=== PATIENT | female | born 1995 | race Caucasian/White ===

== ENCOUNTER 2017-10-01 23:59 | Emergency (ER) | payer OTHER, SELFPAY ==
[2017-10-02 00:02] VITALS: BP 119/79; PULSE 87; RESP 18; TEMP 36.5; O2SAT 99; BMI 26.9
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
[2017-10-02] MEDS: Clindamycin HCl 150 MG Capsule 300 MG PO (00:47)
[2017-10-02 00:49] VITALS: RESP 18
== END 2017-10-02 00:49 | disposition home or self-care (01) ==
PROVIDERS: Emergency Provider Emergency Medicine; Family Provider Family Medicine; PCP Family Medicine
DX: L73.9 Follicular disorder, unspecified (principal); L03.116 Cellulitis of left lower limb; L03.115 Cellulitis of right lower limb; Z72.0 Tobacco use; Z79.899 Other long term (current) drug therapy
CPT/HCPCS: 99283

== ENCOUNTER 2018-05-06 19:00 | Outpatient (REF) | payer SELFPAY ==
[2018-01-22 15:07] VITALS: BMI 28.8
[2018-05-06 20:21] LABS: Pregnancy, Serum, hCG Quali. NEGATIVE Negative (0-9 Nonpreg)
== END 2018-05-06 23:00 | disposition home or self-care (01) ==
LOC: EDREF 19:00
PROVIDERS: Emergency Medicine
DX: Z04.41 Encounter for examination and observation following alleged adult rape (principal)
CPT/HCPCS: 84703

== ENCOUNTER 2018-12-31 03:00 | Emergency (ER) | payer OTHER, SELFPAY ==
[2018-01-22 15:07] VITALS: BMI 28.8
[2018-12-31 03:01] VITALS: BP 142/86; PULSE 106; RESP 100; TEMP 36.6; O2SAT 100
--- NOTE | 2018-12-31 03:30 | ED.DCSUM_ITS ---
History of Present Illness Chief Complaint: Palpitations Narrative: This patient is a 23-year-old female who presents with chest pain. It began yesterday evening. She describes it as sharp. It is pleuritic. She also complains of feeling short of breath. No history of similar symptoms. No recent illness. No fevers cough rhinorrhea sore throat. She is not a smoker. She is on oral contraceptives. No recent travel or surgery. No history of DVT or pulmonary embolism. She is treated for ADHD and also has a history of ODD. Past Medical History - Allergies and Home Meds Allergies/Adverse Reactions: Allergies Penicillins Allergy (Verified 12/31/18 03:06) Unknown Primary Care Physician: Angel Brewer MD [Primary Care Provider] - Past Medical History: - - ODD, ADHD Smoking Status: Never smoker Review of Systems All systems negative except as indicated General: Denies: Fever Cardiovascular: Reports: Chest pain Respiratory: Reports: Dyspnea. Denies: Cough Physical Exam Vital Signs/Narrative: Vital Signs Temp Pulse Resp BP Pulse Ox 12/31/18 03:01 97.9 F 106 H 100 H 142/86 H 100 Inital Vital Signs reviewed: Yes General: Well nourished Head: Normocephalic Eyes: EOMI ENT: Moist mucous membranes Neck: Supple Cardiovascular: Regular rate, Regular rhythm Respiratory: No distress, CTA bilaterally, Chest tenderness Abdomen: Soft, Nontender Skin: Normal color, No rash Neurological: Alert Psychological: - - Histrionic Diagnostic/Tx/Re-eval Impressions Chest X-Ray 12/31/18 03:30 IMPRESSION: No acute cardiopulmonary disease. No significant interval change. Electronically Signed: Kiarra Houston MD at 4:19 EST , Service support , Chest CTA 12/31/18 04:41 IMPRESSION: No demonstrated pulmonary embolism, aneurysm, leak or arterial dissection. Small left pleural fluid with adjacent parenchymal opacification, possible pleurisy versus mild left lower lobe inflammation. Right axillary lymphadenopathy of unclear etiology. Electronically Signed: Kiarra Houston MD at 5:44 EST , Service support , 12/31/18 03:30 Chest PA and Lateral [RAD] Stat 12/31/18 04:41 CTA Chest W/WO Contrast [CT] Stat Laboratory Results 12/31/18 12/31/18 12/31/18 03:36 03:36 03:36 WBC 7.6 RBC 4.11 L Hgb 11.7 L Hct 36.4 L MCV 88.6 MCH 28.5 MCHC 32.1 RDW Std Deviation 42.2 RDW Coeff of Lorrie 13.0 Plt Count 310 MPV 9.3 Immature Gran % (Auto) 0.400 Neut % (Auto) 45.4 L Lymph % (Auto) 38.4 [place] % (Auto) 8.4 Eos % (Auto) 6.6 H Baso % (Auto) 0.8 Absolute Neuts (auto) 3.5 Absolute Lymphs (auto) 2.92 Nucleated RBC % 0 PT 12.3 INR 0.9 D-Dimer Quant (PE/DVT) 0.89 H* Sodium 142 Potassium 4.3 Chloride 105 Carbon Dioxide 30.0 Anion Gap 7 BUN 16 Creatinine 0.89 Estim Creat Clear Calc 80.63 Est GFR (MDRD) Af Amer 100 Est GFR (MDRD) Non-Af 83 BUN/Creatinine Ratio 18.1 Glucose 98 Calcium 8.7 Troponin I < 0.015 - Medical Decision Making Patient was given IV Toradol and is resting much more comfortably on reevaluation. She underwent the above work-up. EKG shows sinus rhythm at a rate of 91 with no acute ischemic changes. D-dimer returned positive. A CTA of the chest was obtained. This shows a small amount of left pleural fluid as well as parenchymal opacification suggestive of mild inflammatory changes. The etiology of this is unclear. She also has some abnormal right axillary lymphadenopathy. Patient was advised of these findings. For now we will treat with anti-inflammatories for pleurisy. However I did refer the patient to pulmonology for follow-up. She understands to return for new or worsening symptoms and was instructed on specific signs and symptoms to monitor for. ED Disposition - Plan for ED Patient: Disposition: Home or Assisted Living Diagnosis: Chest pain, Pleurisy, Lymphadenopathy Instructions: Pleurisy Prescriptions: Naproxen [Naprosyn] 500 mg PO BID #20 tab Prescription Printed Referrals: Angel Brewer MD [Primary Care Provider] - Alonzo,Nico, MD [STAFF PHYSICIAN] -
--- NOTE | 2018-12-31 03:30 | RAD_ITS ---
STUDY: X-RAY CHEST REASON FOR EXAM: Female, 23 years old. Chest pain and epigastric pain TECHNIQUE: PA and lateral views of the chest. 3 images COMPARISON: 01/04/2015 FINDINGS: The lungs are clear and expanded. There is no demonstrated pleural abnormality. Normal size heart. Normal mediastinum and young. Normal visualized pulmonary arteries. Normal visualized aortic arch and descending thoracic aorta. Normal visualized thoracic spine. Normal visualized ribs, clavicles, and shoulders. There is no demonstrated abnormality of the visualized soft tissue structures of the upper abdomen. RAD/Chest PA and Lateral IMPRESSION: No acute cardiopulmonary disease. No significant interval change. Electronically Signed: Kiarra Houston MD at 4:19 EST , Service support ,
--- NOTE | 2018-12-31 03:30 | EKG12_ITS ---
Test Reason : PALPITATIONS Blood Pressure : / mmHG Vent. Rate : 091 BPM Atrial Rate : 091 BPM P-R Int : 130 ms QRS Dur : 076 ms QT Int : 346 ms P-R-T Axes : 056 060 031 degrees QTc Int : 425 ms Normal sinus rhythm Normal ECG Confirmed by BESSY ISLAS, BAYRON ([id number]), film or videotape editor IMANI ESTRADA ([id number]) on 01/01/2019 11:13:38 AM Referred By: MORGAN Confirmed By:BAYRON DOHERTY MD
[2018-12-31] MEDS: Ketorolac 30 MG/ML Syringe IV (03:44)
[2018-12-31] MEDS: 0.9% Normal Saline 1,000 ML 1000 ML IV (03:44)
[2018-12-31 03:45] VITALS: BP 126/74; PULSE 78; RESP 25; O2SAT 100
[2018-12-31 03:49] LABS: Absolute Lymphocyte Count 2.92 X10^3/uL (0.83-4.51); Absolute Neutrophil Count 3.5 X10^3/uL (2.0-7.7); Basophil# 0.06 X10^3/uL; Basophil% 0.8 % (0-1); Eosinophils% 6.6 % (0-5); Hematocrit 36.4 % (37-47); Hemoglobin 11.7 g/dL (12.0-15.0); Lymphocyte # 2.92 X10^3/ul (4.0); Lymphocyte % 38.4 % (19-41); Mean Corp Hgb Conc 32.1 g/dL (32-36); Mean Corpuscular Hgb 28.5 pg (27.0-32.0); Mean Corpuscular Volume 88.6 fL (81-99); Mean Platelet Vol. 9.3 fl (6.2-12.0); Monocyte# 0.64 X10^3/uL; Monocyte% 8.4 % (0-10); NRBC Flagged by Analyzer 0 % (0-5); Neutrophil # 3.45 X10^3/uL (2.7-7.7); Neutrophil % 45.4 % (47-70); Platelet Count 310 K/mm3 (150-450); RBC Distribution Width SD 42.2 fl (35.1-43.9); Red Blood Count 4.11 M/mm3 (4.2-5.4); White Blood Count 7.6 K/mm3 (4.4-11.0)
[2018-12-31 03:58] LABS: International Normalized Ratio 0.9; Prothrombin Time (Protime)PT. 12.3 SECONDS (11.7-14.9)
[2018-12-31 04:07] LABS: Anion Gap 7 (5-15); BUN 16 mg/dL (7-18); BUN/Creat Ratio 18.1 RATIO (10-20); Calcium,Total 8.7 mg/dL (8.5-10.1); Chloride 105 mmol/L (98-107); Creatinine, Serum 0.89 mg/dL (0.55-1.02); EST Glomerular Filtration Rate 83 mL/min (>60); Est Glom Filt Rate - Afr Amer 100 mL/min (>60); Estimated Creatinine Clearance 80.63 ml/min; Glucose 98 mg/dL (74-106); Potassium 4.3 mmol/L (3.5-5.1); Sodium Level 142 mmol/L (136-145)
[2018-12-31 04:16] LABS: D-Dimer Quantitative (DVT/PE) 0.89 FEU/ug/m (0.27-0.49)
--- NOTE | 2018-12-31 04:16 | ED.RN ---
lab called with critical lab results. d dimer 0.89. Dr. Go made aware no new orders at this time
--- NOTE | 2018-12-31 04:41 | CT_ITS ---
STUDY: CTA CHEST REASON FOR EXAM: Female, 23 years old. XR chest painful palpation up this a.m., shortness of breath, elevated d-dimer RADIATION DOSAGE (If Supplied By Facility): CTDIvol = ( 13.42 ) mGy, DLP = ( 334.05 ) mGycm TECHNIQUE: The examination was performed with the intravenous administration of IV 75mL Isovue-370. Post-processing of the angiographic images was performed, with multiplanar reformation and 3D reconstruction. Individualized dose optimization techniques were used for this CT. COMPARISON: PA and lateral view chest 12/31/2018 FINDINGS: Normal enhancement of the main pulmonary artery and right and left pulmonary arteries. Normal enhancement of the bilateral peripheral pulmonary arteries. There is no demonstrated pulmonary embolism. Normal thoracic aorta and visualized great vessels. There is no demonstrated aortic dissection. Normal heart and pericardium. Normal mediastinum. Normal hilar regions. Normal visualized trachea and bronchi. The lungs are well expanded. Otherwise normal pulmonary parenchyma. Trace left pleural fluid with adjacent hazy parenchymal opacification, indistinct pole contour. There is right axillary bilateral lymphadenopathy with indistinct contour measuring up to 2.1 x 1.7 x 1.9 and 1.8 x 1.4 x 1.5 cm image 172 and 159 series 2, image 100 series 601. Normal left sided axillary lymph nodes. Normal osseous structures. Hemangioma in the T7 vertebral body felt to be an incidental finding. Normal visualized upper abdomen. CT/CTA Chest W/WO Contrast IMPRESSION: No demonstrated pulmonary embolism, aneurysm, leak or arterial dissection. Small left pleural fluid with adjacent parenchymal opacification, possible pleurisy versus mild left lower lobe inflammation. Right axillary lymphadenopathy of unclear etiology. Electronically Signed: Kiarra Houston MD at 5:44 EST , Service support ,
[2018-12-31 05:00] VITALS: BP 125/86; PULSE 86; RESP 14; O2SAT 98
[2018-12-31 06:21] VITALS: BP 117/72; PULSE 80; RESP 20; O2SAT 100
== END 2018-12-31 06:26 | disposition home or self-care (01) ==
PROVIDERS: Emergency Provider Emergency Medicine; Family Provider Family Medicine; PCP Family Medicine
DX: R07.9 Chest pain, unspecified (principal); R09.1 Pleurisy; R59.0 Localized enlarged lymph nodes; R06.02 Shortness of breath; R00.2 Palpitations; F90.9 Attention-deficit hyperactivity disorder, unspecified type; F91.3 Oppositional defiant disorder; Z79.899 Other long term (current) drug therapy; Z88.0 Allergy status to penicillin
CPT/HCPCS: 71046; 71275; 80048; 84484; 85025; 85379; 85610; 93005; 96361; 96374; 99284; Q9967

== ENCOUNTER 2019-02-06 18:01 | Emergency (ER) | payer OTHER, SELFPAY ==
[2019-01-07 09:55] VITALS: BMI 29.4
[2019-02-06 18:03] VITALS: BP 139/99; PULSE 82; RESP 16; TEMP 36.6; O2SAT 98; BMI 29.2
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
[2019-02-06 18:51] LABS: Absolute Lymphocyte Count 1.47 X10^3/uL (0.83-4.51); Absolute Neutrophil Count 4.3 X10^3/uL (2.0-7.7); Basophil# 0.03 X10^3/uL; Basophil% 0.5 % (0-1); Eosinophil# 0.05 X10^3/uL; Eosinophils% 0.8 % (0-5); Hemoglobin 11.6 g/dL (12.0-15.0); Lymphocyte # 1.47 X10^3/ul (4.0); Lymphocyte % 23.7 % (19-41); Mean Corp Hgb Conc 32.2 g/dL (32-36); Mean Corpuscular Hgb 27.8 pg (27.0-32.0); Mean Corpuscular Volume 86.3 fL (81-99); Mean Platelet Vol. 9.7 fl (6.2-12.0); Monocyte# 0.34 X10^3/uL; Monocyte% 5.5 % (0-10); NRBC Flagged by Analyzer 0 % (0-5); Neutrophil % 69.3 % (47-70); Platelet Count 286 K/mm3 (150-450); RBC Distribution Width CV 12.8 % (11.6-14.6); RBC Distribution Width SD 40.4 fl (35.1-43.9); Red Blood Count 4.17 M/mm3 (4.2-5.4); White Blood Count 6.2 K/mm3 (4.4-11.0)
[2019-02-06 19:14] LABS: Amphetamine Urine VISTA NEGATIVE (<1000 ng/mL); Barbiturate Urine VISTA NEGATIVE (< 200 ng/mL); Benzodiazepine Urine VISTA NEGATIVE (< 200 ng/mL); Cocaine Urine VISTA NEGATIVE (< 300 ng/mL); Ecstacy Urine VISTA NEGATIVE (< 500 ng/mL); Methadone Urine VISTA NEGATIVE (< 300 ng/mL); PCP Urine VISTA NEGATIVE (< 25 ng/mL); THC Urine VISTA NEGATIVE (< 50 ng/mL); Vista UDS pH Range 6
[2019-02-06 19:16] LABS: Alcohol, Blood (Medical)-Serum < 3.0 mg/dL; Internal QC Validated? YES +Cl - CLEAR BKGD; Pregnancy, Serum, hCG Quali. NEGATIVE Negative
[2019-02-06 19:17] LABS: Anion Gap 5 (5-15); BUN 5 mg/dL (7-18); BUN/Creat Ratio 6.2 RATIO (10-20); Calcium,Total 8.7 mg/dL (8.5-10.1); Chloride 108 mmol/L (98-107); Creatinine, Serum 0.81 mg/dL (0.55-1.02); EST Glomerular Filtration Rate 92 mL/min (>60); Est Glom Filt Rate - Afr Amer 112 mL/min (>60); Estimated Creatinine Clearance 88.59 ml/min; Glucose 101 mg/dL (74-106); Potassium 3.5 mmol/L (3.5-5.1); Sodium Level 141 mmol/L (136-145)
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
[2019-02-06 21:38] VITALS: BP 121/73; PULSE 77; RESP 15; O2SAT 100
== END 2019-02-06 21:40 | disposition home or self-care (01) ==
PROVIDERS: Emergency Provider Emergency Medicine; Family Provider Family Medicine; PCP Family Medicine
DX: F31.9 Bipolar disorder, unspecified (principal); F17.200 Nicotine dependence, unspecified, uncomplicated; Z91.5 Personal history of self-harm
CPT/HCPCS: 80048; 80307; 80320; 84703; 85025; 99284; G0480

== ENCOUNTER 2019-07-05 17:38 | Emergency (ER) | payer OTHER, MEDICAID, SELFPAY ==
[2019-07-05 17:39] VITALS: BP 112/64; PULSE 98; RESP 16; TEMP 36.2; O2SAT 99; BMI 27.8
--- NOTE | 2019-07-05 17:56 | CT_ITS ---
STUDY: CT BRAIN WITHOUT CONTRAST REASON FOR EXAM: Female, 24 years old. FALL/dizzy/syncope RADIATION DOSAGE (If Supplied By Facility): CTDIvol = ( 44.99 ) mGy, DLP = ( 745.49 ) mGycm TECHNIQUE: Transaxial CT imaging of the brain was performed without administration of intravenous contrast material. Individualized dose optimization techniques were used for this CT. COMPARISON: No relevant priors. FINDINGS: There is scalp injury of the posterior right parietal region. Normal calvarium. Normal size ventricles and extra-axial spaces for the patient''s age. Normal white matter tracts of the cerebral hemispheres. Normal basal ganglia and thalami. Normal brainstem. Normal cerebellum. There is no intracranial hemorrhage. There are no findings of an acute ischemic infarction. There is mucosal thickening of the left maxillary sinus. CT/Brain/Head without Contrast IMPRESSION: There is no evidence of intracranial hemorrhage or calvarial fracture. There is scalp injury of the posterior right parietal region. There is mucosal thickening of the left maxillary sinus which may represent mild chronic sinusitis. Electronically Signed: Ronaldo Enciso MD at 18:40 EDT , Service support ,
[2019-07-05] MEDS: Diphth,Pertuss(Acell),Tet Vac 0.5 ML Vial IM (18:07)
--- NOTE | 2019-07-05 18:40 | ED.DCSUM_ITS ---
- ER Visit Summary Date of Service: 07/05/19 Chief Complaint: Laceration History of Present Illness: The patient is a 24 F who fell prior to arrival. She stood up too fast and got dizzy. She did not lose consciousness, but she lost her balance and hit her head. She complains of a laceration to her occipu t. No blood thinners. No other associated symptoms or complaints. No other trauma. Physical Examination: Afebrile and vital signs unremarkable. She has a 3 cm linear full-thickness laceration to her right occiput. Otherwise exam is unremarkable. Good strength and sensation. Normal gait. Test Results: CT brain unremarkable. Emergency Department Course and Treatment: Tetanus was updated. Wound was cleaned and explored. Closed with 3 adiel. Wound care instructions given. Patient likely had a concussion. Concussion precautions were given. It sounds like the patient got dizzy because she stood up too fast. There is nothing to suggest autonomic dysfunction or orthostatic hypotension. Patient h ad no concerns of any medical issues. She is not having any other symptoms or concerning historical features. She did not want any further evaluation. I believe this is appropriate. Risks were discussed. Patient will be discharged to follow-up as an outpatient for wound care. Return right away for any new or worsening issues. Treatment Plan: As above Disposition: Discharge Impression: Scalp laceration 3 cm, concussion This note was generated with [employer] dictation software. It may contain incorrect words, spelling, and punctuation that were not noted in review of the chart prior to signing ED Disposition - Plan for ED Patient: Instructions: ED Laceration Scalp Sutures or [place] Referrals: Angel Brewer MD [Primary Care Provider] - 10 Day for suture removal
--- NOTE | 2019-07-05 18:43 | ED.DEP ---
ED Disposition - Plan for ED Patient: Instructions: ED Laceration Scalp Sutures or [place] Referrals: Angel Brewer MD [Primary Care Provider] - 10 Day for suture removal
[2019-07-05 18:50] VITALS: BP 130/80; PULSE 87; RESP 15
== END 2019-07-05 18:55 | disposition home or self-care (01) ==
LOC: ED 18:34
PROVIDERS: Emergency Provider Emergency Medicine; PCP Family Medicine
DX: S06.0X0A Concussion without loss of consciousness, initial encounter (principal); S01.01XA Laceration without foreign body of scalp, initial encounter; W19.XXXA Unspecified fall, initial encounter; Y93.89 Activity, other specified; Y92.9 Unspecified place or not applicable; F31.9 Bipolar disorder, unspecified; Z72.0 Tobacco use
CPT/HCPCS: 12002; 70450; 90471; 90715; 99282

== ENCOUNTER 2021-05-27 18:03 | Emergency (ER) | payer MEDICAID, SELFPAY ==
[2021-05-27 18:04] VITALS: BP 117/80; PULSE 78; RESP 16; TEMP 36.7; O2SAT 100; BMI 24.3
[2021-05-27 18:29] VITALS: BP 117/80; PULSE 78; RESP 16; TEMP 36.7; O2SAT 100
--- NOTE | 2021-05-27 19:24 | ED.VIS.DENTA ---
HPI History of Present Illness Chief Complaint: Dental Narrative Narrative: Patient denies significant past medical history presents with pain in her right lower jaw and in her second molar that she has had for the last few days to week. She states she broke her tooth weeks ago, but started having more pain yesterday. She denies any fevers or chills. No difficulty swallowing. No swelling of her jaw. She is a non-smoker. She has not seen her dentist since last year. [facility] Medical History Fatigue neck and back pain Severe headache Shortness of breath Home Medications lamotrigine 25 mg tablet 150 mg PO DAILY 01/22/18 [History Last Taken Unknown] norgestimate 0.25 mg-ethinyl estradiol 35 mcg tablet 1 tab PO DAILY 01/22/18 [History Last Taken Unknown] albuterol sulfate 90 mcg/actuation breath activated powder inhaler 2 inh INHALATION Q6H PRN #1 ea 01/07/19 [Rx Last Taken Unknown] citalopram 40 mg PO DAILY 07/05/19 [History Last Taken Unknown] clindamycin HCl [Cleocin HCl] 300 mg PO Q6H #40 cap 05/27/21 [Rx Last Taken Unknown] ibuprofen 600 mg PO Q6H PRN PRN #20 tab 05/27/21 [Rx Last Taken Unknown] Allergy/AdvReac Type Severity Reaction Status Date / Time Penicillins Allergy Unknown Verified 05/27/21 18:04 Family History Grandmother Diabetes Social History Smoking Status: Never smoker alcohol intake: never ROS ROS ED ROS Narrative Constitutional: No fever, no chills. HEENT: No sore throat. No neck pain. No loss of vision. No rhinorrhea. Right lower jaw pain/tooth ache of second molar. No difficulty swallowing or breathing. Cardiovascular: No chest pain. No palpitations. No pedal edema. Respiratory: No cough, no shortness of breath. Abdominal: No abdominal pain. No nausea. No vomiting. Genitourinary: No dysuria. No hematuria. Musculoskeletal: No myalgias. No arthralgias. Neurologic: No headaches. No dizziness. No lightheadedness. Skin: No rash. No change in color. Psychiatric: No depression. No anxiety. EXAM Physical Exam Narrative Exam Narrative: Afebrile. Vital signs noted. HEENT: Normocephalic. Atraumatic. PERRL, EOMI. Neck soft and supple. No point tenderness or step off. No drooling or trismus. Positive carious tooth second molar right lower jaw. No Clay angina or woody edema. Cardiovascular: Regular rate and rhythm. No murmurs, rubs, or gallops appreciated. Respiratory: No tachypnea. Lungs clear to auscultation bilaterally. Gastrointestinal: Abdomen soft, nontender, with normoactive bowel sounds. No rebound or guarding. Neurological: Awake. Alert. Nonfocal, nonlateralizing. Skin: No rash. Normal color. No pallor. Musculoskeletal: No pedal edema. Full range of motion extremities. Const Vital Signs: 05/27/21 18:04 05/27/21 18:29 Temperature 98.0 F 98.0 F Temperature Source Temporal Temporal Pulse Rate 78 78 Respiratory Rate 16 16 Blood Pressure 117/80 117/80 Blood Pressure Mean 92 92 Pulse Ox 100 100 Oxygen Delivery Method Room Air Room Air MDM MDM MDM Narrative Medical decision making narrative: Patient has an allergy to penicillins. She is taking clindamycin previously. She states she is taking ibuprofen with mild relief of her symptoms. She was written prescriptions for clindamycin and ibuprofen 600 mg. She will follow up with her dentist soon as possible. I feel she be discharged safely home with follow-up. Return instructions were reviewed. Disposition is discharged home in stable condition. Discharge Plan Triage Chief Complaint: Dental ED Provider: Go [place] Dx/Rx/DC Orders Clinical Impression: Dental caries, Toothache Instructions: ED Dental Pain, ED Dental Cavity Prescriptions: New clindamycin HCl [Cleocin HCl] 300 mg capsule 300 mg PO Q6H Qty: 40 RF: 0 ibuprofen 600 mg tablet 600 mg PO Q6H PRN PRN (Reason: pain) Qty: 20 RF: 0 No Action lamotrigine [Lamictal] 25 mg tablet 150 mg PO DAILY RF: 0 norgestimate-ethinyl estradiol [Estarylla] 0.25-35 mg-mcg tablet 1 tab PO DAILY RF: 0 ProAir RespiClick 90 mcg/actuation aerosol powdr breath activated 2 inh INHALATION Q6H PRN (Reason: shortness of breath or wheezing) Qty: 1 RF: 1 citalopram 40 MG tablet 40 mg PO DAILY RF: 0 Primary Care Provider: Angel Brewer Referrals: Angel Brewer MD [Primary Care Provider] - Activity Restrictions/Additional Instructions: Follow-up with your dentist as soon as possible. Disposition Disposition: Home, Self Care
== END 2021-05-27 19:31 | disposition home or self-care (01) ==
PROVIDERS: Emergency Provider Emergency Medicine; PCP Family Medicine; Visit Provider Emergency Medicine
DX: K02.9 Dental caries, unspecified (principal); K08.89 Other specified disorders of teeth and supporting structures; Z79.899 Other long term (current) drug therapy
CPT/HCPCS: 99282

== ENCOUNTER 2022-07-17 07:34 | Emergency (ER) | payer MEDICAID, SELFPAY ==
[2022-07-17 07:35] VITALS: BP 113/89; PULSE 84; RESP 16; TEMP 36.4; O2SAT 99; BMI 25.9
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
== END 2022-07-17 08:39 | disposition home or self-care (01) ==
PROVIDERS: Emergency Provider Emergency Medicine; PCP Family Medicine; Visit Provider Emergency Medicine
DX: F41.0 Panic disorder [episodic paroxysmal anxiety] (principal); F31.9 Bipolar disorder, unspecified; Y09 Assault by unspecified means; Z79.899 Other long term (current) drug therapy; Z79.3 Long term (current) use of hormonal contraceptives
CPT/HCPCS: 70450; 71046; 99284